=== PATIENT | male | born 1985 | race Caucasian/White ===

== ENCOUNTER 2023-08-12 10:32 | Observation (INO) | payer OTHER, SELFPAY ==
[2023-08-12 11:13] LABS: ALT (SGPT) 27 U/L (8-55); AST (SGOT) 22 U/L (5-34); Albumin 4.7 g/dL (3.5-5.0); Alkaline Phosphatase 87 U/L (40-110); Anion Gap 17 mmol/L (10-20); BUN (Urea Nitrogen) 4 mg/dL (8.9-20.6); Bilirubin, Total 1.4 mg/dL (0.2-1.2); Calc. Creatinine Clearance 0 mL/min (70-130); Calcium 9.6 mg/dL (7.8-10.44); Carbon Dioxide 23 mmol/L (22-29); Chloride 104 mmol/L (98-107); Estimated GFR 98; Globulin 2.8 g/dL (2.4-3.5); Glucose 111 mg/dL (70-105); Potassium 3.6 mmol/L (3.5-5.1); Protein, Total 7.5 g/dL (6.0-8.3); Sodium 140 mmol/L (136-145)
[2023-08-12 11:16] LABS: Troponin I Less than 0.010 ng/mL (< 0.028)
[2023-08-12] MEDS ORDERED: Aspirin Chewable 81 MG TAB ONE (11:21)
[2023-08-12 11:35] LABS: #Basophils 0.1 thou/uL (0.0-0.2); #Eosinphils 0.2 thou/uL (0.0-0.7); #Monocytes 1.5 thou/uL (0.11-0.59); #Neutrophils 16.7 thou/uL (1.40-6.50); %Basophils 0.5 % (0.0-1.0); %Eosinophils 0.7 % (0.0-10.0); %Lymphocytes 21.6 % (21.0-51.0); %Monocytes 6.2 % (0.0-10.0); %Neutrophils 69.5 % (42.0-75.0); Hematocrit 56.7 % (42.0-52.0); Hemoglobin 21.8 g/dL (14.0-18.0); Mean Corpuscular HGB CONC 38.4 g/dL (32.0-36.0); Mean Corpuscular Hemoglobin 36.1 pg (27.0-31.0); Mean Corpuscular Volume 93.9 fl (78.0-98.0); Mean Platelet Volume 10.2 fL (7.4-10.4); Platelet Count 301 10x3/uL (130-400); RBC Distribution Width 14.6 % (11.5-14.5); Red Blood Cell (RBC) Count 6.04 mill/uL (4.70-6.10)
[2023-08-12 11:50] LABS: Lipase 29 U/L (8-78); Magnesium 1.7 mg/dL (1.6-2.6)
[2023-08-12] MEDS ORDERED: Nitroglycerin 0.4 MG TAB (25 Tab Bottle) ONE (12:26)
[2023-08-12] MEDS ORDERED: Acetaminophen 500 MG TAB ONE (12:42)
[2023-08-12 14:24] LABS: Troponin I Less than 0.010 ng/mL (< 0.028)
[2023-08-12] MEDS ORDERED: Cefepime 2 GM VIAL ONE (14:57)
[2023-08-12] MEDS ORDERED: Sodium Chloride 0.9% 100 ML ONE (14:57)
[2023-08-12] MEDS ORDERED: Vancomycin 1 GM/200 ML (FROZEN) BAG ONE (15:32)
[2023-08-12] MEDS ORDERED: Iopamidol-370 76% 500 ML MDV (1 ML CHARGE) ONE (15:43)
[2023-08-12] MEDS ORDERED: Calcium Carbonate 500 MG ChewTAB PO PRN (16:05)
[2023-08-12] MEDS ORDERED: Ondansetron PF 4 MG/2 ML Vial IVP PRN (16:05)
[2023-08-12] MEDS ORDERED: Senokot S 8.6-50 MG TAB PO PRN (16:05)
[2023-08-12 16:52] LABS: SARS-CoV-2 NAA Rapid Test Not Detected (NotDetected)
[2023-08-12] MEDS: Acetaminophen 325 MG TAB PO PRN (17:05)
[2023-08-12] MEDS: Sodium Chloride 0.9% 1,000 ML IV SCH ×2 (17:06→20:26)
[2023-08-12 17:53] LABS: Lactic Acid 2.5 mmol/L (0.5-2.2)
[2023-08-12] MEDS ORDERED: Lorazepam 1 MG TAB PO PRN (18:17)
[2023-08-12 18:49] LABS: Troponin I Less than 0.010 ng/mL (< 0.028)
[2023-08-12 19:06] VITALS: BMI 31.1
[2023-08-12 19:26] LABS: Amphetamine Not Detected (NotDetected); Barbiturates Screen Not Detected (NotDetected); Benzodiazepine Screen Not Detected (NotDetected); Cocaine Metabolite Screen Not Detected (NotDetected); Methadone Not Detected (NotDetected); Methamphetamine Not Detected (NotDetected); Opiate Screen Not Detected (NotDetected); Oxycodone Screen Not Detected (NotDetected); Phencyclidine (PCP) Not Detected (NotDetected); THC/Cannabinoid Screen Not Detected (NotDetected); Tricyclic Screen Not Detected (NotDetected)
[2023-08-12] MEDS: Doxycycline 100 MG in Sodium Chloride 0.9% 100 ML IVPB SCH (20:26)
[2023-08-12 20:33] LABS: Troponin I Less than 0.010 ng/mL (< 0.028)
[2023-08-13 06:15] LABS: Albumin 3.4 g/dL (3.5-5.0)
[2023-08-13 06:16] LABS: #Eosinphils 0.2 thou/uL (0.0-0.7); #Monocytes 0.8 thou/uL (0.11-0.59); #Neutrophils 6.9 thou/uL (1.40-6.50); %Basophils 0.4 % (0.0-1.0); %Eosinophils 1.4 % (0.0-10.0); %Lymphocytes 28.3 % (21.0-51.0); %Monocytes 7.5 % (0.0-10.0); Hematocrit 48.8 % (42.0-52.0); Mean Corpuscular HGB CONC 37.9 g/dL (32.0-36.0); Mean Corpuscular Hemoglobin 36.8 pg (27.0-31.0); Mean Platelet Volume 10.3 fL (7.4-10.4); Platelet Count 221 10x3/uL (130-400); RBC Distribution Width 14.6 % (11.5-14.5); Red Blood Cell (RBC) Count 5.03 mill/uL (4.70-6.10); White Blood Cell (WBC) Count 11.1 10x3/uL (4.8-10.8)
[2023-08-13 06:17] LABS: Calcium 8.5 mg/dL (7.8-10.44); Chloride 106 mmol/L (98-107); Potassium 3.8 mmol/L (3.5-5.1); Sodium 140 mmol/L (136-145)
[2023-08-13 06:18] LABS: Globulin 2.2 g/dL (2.4-3.5); Glucose 83 mg/dL (70-105); Triglycerides 151 mg/dL (Less than 150)
[2023-08-13 06:19] LABS: Anion Gap 11 mmol/L (10-20); Carbon Dioxide 27 mmol/L (22-29)
[2023-08-13 06:20] LABS: Bilirubin, Total 1.7 mg/dL (0.2-1.2)
[2023-08-13 06:21] LABS: Alkaline Phosphatase 71 U/L (40-110); Calc. Creatinine Clearance 167 mL/min (70-130); Estimated GFR 114; Protein, Total 5.6 g/dL (6.0-8.3)
[2023-08-13 06:22] LABS: BUN (Urea Nitrogen) 7 mg/dL (8.9-20.6)
[2023-08-13 06:23] LABS: AST (SGOT) 14 U/L (5-34); Cholesterol 150 mg/dl (< 200 Desired)
[2023-08-13 06:24] LABS: ALT (SGPT) 18 U/L (8-55); Cardiac Risk 4.2 (Less than 4.5); HDL Cholesterol 36 mg/dL (>60 Neg Risk); LDL Cholesterol, Calculated 84 mg/dL
[2023-08-13 06:25] LABS: Hemoglobin 18.5 g/dL (14.0-18.0)
[2023-08-13 06:45] LABS: Hemoglobin A1c 4.6 % (4.0-6.0)
[2023-08-13] MEDS: Enoxaparin 40 MG (0.4 mL) SYRINGE SC SCH (08:58)
[2023-08-13] MEDS: Folic Acid 1 MG TAB PO SCH (08:59)
[2023-08-13] MEDS: Multivit, Therapeutic 1 TAB PO SCH (08:59)
[2023-08-13] MEDS: Thiamine 100 MG TAB PO SCH (08:59)
[2023-08-13] MEDS: Metoprolol Tartrate 25 MG TAB PO SCH (14:22)
[2023-08-13 16:51] VITALS: BP 152/107; TEMP 98.4
[2023-08-13] MEDS ORDERED: Lorazepam 1 MG TAB PO PRN (18:17)
[2023-08-14] MEDS ORDERED: Lorazepam 1 MG TAB PO PRN (18:17)
[2023-08-15] MEDS ORDERED: Lorazepam 0.5 MG TAB PO PRN (18:17)
== END 2023-08-13 17:57 | disposition home or self-care (01) ==
LOC: SUATTDRO 10:32 → ERS 10:32 → 2SW 16:48
PROVIDERS: ADMIT Internal Medicine; ATTEND Hospitalist
DX: K80.20 Calculus of gallbladder without cholecystitis without obstruction (principal); R00.0 Tachycardia, unspecified; R07.89 Other chest pain; J06.9 Acute upper respiratory infection, unspecified; D72.829 Elevated white blood cell count, unspecified; D75.1 Secondary polycythemia; F19.90 Other psychoactive substance use, unspecified, uncomplicated; F10.10 Alcohol abuse, uncomplicated; F17.200 Nicotine dependence, unspecified, uncomplicated
CPT/HCPCS: 36415; 71045; 71260; 76705; 80053; 80061; 80306; 80307; 83036; 83605; 83690; 83735; 84443; 84484; 85025; 85379; 87040; 93005; 96365; 96367; 96372; 96375; 96376; G0378; J0692; J1650; J3370-JW; J3490; J7050; Q9967